=== PATIENT | male | born 1940 | race Caucasian/White ===

== ENCOUNTER → 2020-12-27 08:07 | Day surgery (SDC) | payer OTHER, SELFPAY ==
[2020-12-22 09:03] VITALS: BMI 27.6
--- NOTE | 2020-12-26 10:16 | P.CONAN_ITS ---
HPI - Anesthesia Eval Consult details Narrative: Cx'd DOS for low HR. 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 80yo M for Right Right Horizontal 2 Eye Muscle Recession/Resections PCP cleared [facility] Past Medical History Medical History (Updated 01/03/21 @ 12:06 by Christiane Green, RN) Arthritis of back Ataxia BPH (benign prostatic hyperplasia) Bradycardia CHF (congestive heart failure) COPD (chronic obstructive pulmonary disease) Elevated cholesterol Gait instability HTN (hypertension) Hyperparathyroidism Osteoarthritis Renal insufficiency Smoker Spinal stenosis Surgical History Surgical History History of esophagogastroduodenoscopy (EGD) History of hernia surgery History of neck surgery History of total left knee replacement Hx of colonoscopy Social History Social History Are you a primary career technology teacher to a significant other at home: No Do you presently have visiting nurse or other home services: No Patient Tobacco Use Status: Current everyday Tobacco user Tobacco use type: Cigarette Cigarettes Per Day: 8 Years Smoked: 55 Smoked in Last 30 Days: Yes Patient Interested in Nicotine Replacement: No Use of substances other than those prescribed or required for medical reasons: No Have you been hit, kicked, punched, or otherwise hurt by someone within the past year? If so, by whom?: No Are you DNR?: No Advance Directives: No Advance Directives Information Provided: No Advance Directives on File: No Recently lost weight without trying: No Eating poorly because of decreased appetite: No Nutrition Risks: No Nutritional Risk Meds Allergies Allergy/AdvReac Type Severity Reaction Status Date / Time No Known Allergies Allergy Verified 12/26/20 13:10 Home Medications Medication Instructions Recorded Confirmed Last Taken Type albuterol sulfate 90 mcg/actuation 2 puff INHALATION Q4-6H PRN 12/21/20 01/03/21 12/27/20 07:10 History aerosol inhaler (Proventil HFA) amlodipine 5 mg tablet 10 mg PO DAILY 12/21/20 01/03/21 12/27/20 07:10 History aspirin 81 mg tablet,delayed 81 mg PO DAILY 12/21/20 01/03/21 Unknown History release budesonide-formoterol HFA 80 2 puff INHALATION BID 12/21/20 01/03/21 12/27/20 07:10 History mcg-4.5 mcg/actuation aerosol inhaler (Symbicort) calcium carb-ergocalciferol (vit tab PO 12/21/20 Unknown History D2) 600 mg calcium-200 unit tablet carvedilol 12.5 mg tablet 6.25 mg PO BID 12/21/20 01/03/21 12/27/20 07:10 History magnesium 250 mg tablet 250 mg PO DAILY 12/21/20 01/03/21 Unknown History multivitamin 1 tab PO DAILY 12/21/20 01/03/21 Unknown History omeprazole 20 mg capsule,delayed 20 mg PO DAILY 12/21/20 01/03/21 12/27/20 07:10 History release rosuvastatin 20 mg tablet 20 mg PO DAILY 12/21/20 01/03/21 Unknown History sildenafil 50 mg tablet (Viagra) 50 mg PO DAILY PRN 12/21/20 01/03/21 Unknown History tiotropium bromide 18 mcg capsule 1 cap INHALATION DAILY 12/21/20 01/03/21 Unknown History with inhalation device (Spiriva with HandiHaler) tolterodine 4 mg capsule,extended 4 mg PO DAILY 12/21/20 01/03/21 Unknown History release 24 hr torsemide 20 mg tablet 20 mg PO DAILY 12/21/20 01/03/21 Unknown History Exam Exam Date and Time: December 26, 2020 1016 Height,Weight and Vital Signs: Height 5 ft 8 in Weight 82.554 kg Assessment and Plan Assessment Anesthesia Assessment: Chart Reviewed
[2020-12-27 08:29] VITALS: BP 155/44; PULSE 44; RESP 16; TEMP 36.7; O2SAT 97
[2020-12-27 08:42] VITALS: BP 149/48; PULSE 35
[2020-12-27] MEDS: Lactated Ringers 1,000 ML 20 ML IVCONT (08:42)
--- NOTE | 2020-12-27 08:48 | ECG_ITS ---
Test Reason : SHORT STAY Blood Pressure : / mmHG Vent. Rate : 046 BPM Atrial Rate : 046 BPM P-R Int : 256 ms QRS Dur : 104 ms QT Int : 466 ms P-R-T Axes : 090 -36 027 degrees QTc Int : 407 ms Sinus bradycardia with 1st degree A-V block Left anterior fascicular block Minimal voltage criteria for LVH, may be normal variant ( R in aVL ) Abnormal ECG No previous ECGs available Referred By: Ramy Garcia Electronically Signed By:JAINA TIMMONS MD
--- NOTE | 2020-12-27 08:55 | PC.NURSE ---
EKG BEING PERFORMED PER MD WOODS. AWARE OF HIS LOW HEART RATE. ASYMPTOMATIC.
--- NOTE | 2020-12-27 09:12 | PC.NURSE ---
MD WOODS BY BEDSIDE EVALUATING PATIENT. NO CHANGES
--- NOTE | 2020-12-27 09:24 | PC.NURSE ---
[facility] BY BEDSIDE EVALUATING PATIENT.
[2020-12-27 09:33] VITALS: BP 164/50; PULSE 43; RESP 16; O2SAT 96
--- NOTE | 2020-12-27 09:34 | PC.NURSE ---
IV REMOVED. ASSISTED WITH WHEELCHAIR OUT OF THE BUILDING.
--- NOTE | 2020-12-27 09:53 | PC.NURSE ---
PATIENTS STATES THEY HAVE A CARDIOLOGY APPT ON FRIDAY. INSTRUCTED TO CALL AND SEE IF THEYT CAN GET IN ANY EARLIER AND IF SYMPTOMATIC TO GO TO THE ER.
== END ==
PROVIDERS: PCP Internal Medicine; Visit Provider Ophthalmology
DX: H50.111 Monocular exotropia, right eye (principal); Z53.9 Procedure and treatment not carried out, unspecified reason; R00.1 Bradycardia, unspecified
CPT/HCPCS: 93005

== ENCOUNTER 2021-01-10 08:01 | Day surgery (SDC) | payer MEDICARE, OTHER, SELFPAY ==
[2021-01-03 12:06] VITALS: BMI 27.6
--- NOTE | 2021-01-09 13:55 | HO.ANESPROP2 ---
Documented by User: Theresa Mojica NP 01/09/21 14:01 HPI - Anesthesia Eval Consult details Narrative: 80yo M for Right Eye Muscle Recession/Resection, 2 horizontal muscles Cx'd 12/27/20 for low HR. 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 - per cardiology low risk for procedure, medications adjusted PCP cleared [facility] Past Medical History Medical History (Updated 01/03/21 @ 12:06 by Christiane Green, RN) Arthritis of back Ataxia BPH (benign prostatic hyperplasia) Bradycardia CHF (congestive heart failure) COPD (chronic obstructive pulmonary disease) Elevated cholesterol Gait instability HTN (hypertension) Hyperparathyroidism Osteoarthritis Renal insufficiency Smoker Spinal stenosis Surgical History Surgical History History of esophagogastroduodenoscopy (EGD) History of hernia surgery History of neck surgery History of total left knee replacement Hx of colonoscopy Social History Social History Are you a primary field care manager to a significant other at home: No Do you presently have visiting nurse or other home services: No Patient Tobacco Use Status: Current everyday Tobacco user Tobacco use type: Cigarette Cigarettes Per Day: 8 Years Smoked: 55 Smoked in Last 30 Days: Yes Patient Interested in Nicotine Replacement: No Use of substances other than those prescribed or required for medical reasons: No Have you been hit, kicked, punched, or otherwise hurt by someone within the past year? If so, by whom?: No Are you DNR?: No Advance Directives: No Advance Directives Information Provided: No Advance Directives on File: No Recently lost weight without trying: No Eating poorly because of decreased appetite: No Nutrition Risks: No Nutritional Risk Meds Allergies Allergy/AdvReac Type Severity Reaction Status Date / Time No Known Allergies Allergy Verified 12/26/20 13:10 Home Medications Medication Instructions Recorded Confirmed Last Taken Type albuterol sulfate 90 mcg/actuation 2 puff INHALATION Q4-6H PRN 12/21/20 01/03/21 01/10/21 History aerosol inhaler (Proventil HFA) amlodipine 5 mg tablet 10 mg PO DAILY 12/21/20 01/03/21 01/10/21 History aspirin 81 mg tablet,delayed 81 mg PO DAILY 12/21/20 01/03/21 Unknown History release budesonide-formoterol HFA 80 2 puff INHALATION BID 12/21/20 01/03/21 01/10/21 History mcg-4.5 mcg/actuation aerosol inhaler (Symbicort) calcium carb-ergocalciferol (vit tab PO 12/21/20 Unknown History D2) 600 mg calcium-200 unit tablet carvedilol 12.5 mg tablet 6.25 mg PO BID 12/21/20 01/03/21 01/10/21 History magnesium 250 mg tablet 250 mg PO DAILY 12/21/20 01/03/21 Unknown History multivitamin 1 tab PO DAILY 12/21/20 01/03/21 Unknown History omeprazole 20 mg capsule,delayed 20 mg PO DAILY 12/21/20 01/03/21 01/10/21 History release rosuvastatin 20 mg tablet 20 mg PO DAILY 12/21/20 01/03/21 Unknown History sildenafil 50 mg tablet (Viagra) 50 mg PO DAILY PRN 12/21/20 01/03/21 Unknown History tiotropium bromide 18 mcg capsule 1 cap INHALATION DAILY 12/21/20 01/03/21 Unknown History with inhalation device (Spiriva with HandiHaler) tolterodine 4 mg capsule,extended 4 mg PO DAILY 12/21/20 01/03/21 Unknown History release 24 hr torsemide 20 mg tablet 20 mg PO DAILY 12/21/20 01/03/21 Unknown History Exam Exam Date and Time: January 09, 2021 1355 Height,Weight and Vital Signs: Height 5 ft 8 in Weight 82.5 kg Narrative Narrative: EKG 12/27/20 Vent. Rate : 046 BPM ? ? Atrial Rate : 046 BPM ?? P-R Int : 256 ms? QRS Dur : 104 ms ? ? QT Int : 466 ms ? ? ? P-R-T Axes : 090 -36 027 degrees ?? QTc Int : 407 ms ? Sinus bradycardia with 1st degree A-V block Left anterior fascicular block Minimal voltage criteria for LVH, may be normal variant ( R in aVL ) Abnormal ECG No previous ECGs available Assessment and Plan Assessment Anesthesia Assessment: Chart Reviewed Documented by User: Lesly Ambrose MD 01/10/21 12:35 HPI - Anesthesia Eval Consult details Narrative: 80yo M for Right Eye Muscle Recession/Resection, 2 horizontal muscles Cx'd 12/27/20 for low HR. 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 Medications changed. HR still low ?P waves ?PACs, PVCs. Will check 12lead ekg [facility] Past Medical History Medical History (Updated 01/03/21 @ 12:06 by Christiane Green RN) Arthritis of back Ataxia BPH (benign prostatic hyperplasia) Bradycardia CHF (congestive heart failure) COPD (chronic obstructive pulmonary disease) Elevated cholesterol Gait instability HTN (hypertension) Hyperparathyroidism Osteoarthritis Renal insufficiency Smoker Spinal stenosis Family History Family history of problems with anesthesia: No Surgical History Surgical History History of esophagogastroduodenoscopy (EGD) History of hernia surgery History of neck surgery History of total left knee replacement Hx of colonoscopy History of Problems with Anesthesia: No Social History Social History Are you a primary field care manager to a significant other at home: No Do you presently have visiting nurse or other home services: No Patient Tobacco Use Status: Current everyday Tobacco user Tobacco use type: Cigarette Cigarettes Per Day: 8 Years Smoked: 55 Smoked in Last 30 Days: Yes Patient Interested in Nicotine Replacement: No Use of substances other than those prescribed or required for medical reasons: No Have you been hit, kicked, punched, or otherwise hurt by someone within the past year? If so, by whom?: No Are you DNR?: No Advance Directives: No Advance Directives Information Provided: No Advance Directives on File: No Recently lost weight without trying: No Eating poorly because of decreased appetite: No Nutrition Risks: No Nutritional Risk Meds Allergies Allergy/AdvReac Type Severity Reaction Status Date / Time No Known Allergies Allergy Verified 12/26/20 13:10 Home Medications Medication Instructions Recorded Confirmed Last Taken Type albuterol sulfate 90 mcg/actuation 2 puff INHALATION Q4-6H PRN 12/21/20 01/03/21 01/10/21 History aerosol inhaler (Proventil HFA) amlodipine 5 mg tablet 10 mg PO DAILY 12/21/20 01/03/21 01/10/21 History aspirin 81 mg tablet,delayed 81 mg PO DAILY 12/21/20 01/03/21 Unknown History release budesonide-formoterol HFA 80 2 puff INHALATION BID 12/21/20 01/03/21 01/10/21 History mcg-4.5 mcg/actuation aerosol inhaler (Symbicort) calcium carb-ergocalciferol (vit tab PO 12/21/20 Unknown History D2) 600 mg calcium-200 unit tablet carvedilol 12.5 mg tablet 6.25 mg PO BID 12/21/20 01/03/21 01/10/21 History magnesium 250 mg tablet 250 mg PO DAILY 12/21/20 01/03/21 Unknown History multivitamin 1 tab PO DAILY 12/21/20 01/03/21 Unknown History omeprazole 20 mg capsule,delayed 20 mg PO DAILY 12/21/20 01/03/21 01/10/21 History release rosuvastatin 20 mg tablet 20 mg PO DAILY 12/21/20 01/03/21 Unknown History sildenafil 50 mg tablet (Viagra) 50 mg PO DAILY PRN 12/21/20 01/03/21 Unknown History tiotropium bromide 18 mcg capsule 1 cap INHALATION DAILY 12/21/20 01/03/21 Unknown History with inhalation device (Spiriva with HandiHaler) tolterodine 4 mg capsule,extended 4 mg PO DAILY 12/21/20 01/03/21 Unknown History release 24 hr torsemide 20 mg tablet 20 mg PO DAILY 12/21/20 01/03/21 Unknown History Exam Height,Weight and Vital Signs: Height 5 ft 8 in Weight 82.5 kg Vital Signs Temp Pulse Resp BP Pulse Ox 97.6 F 55 18 191/63 H 96 01/10/21 09:32 01/10/21 09:32 01/10/21 09:32 01/10/21 09:32 01/10/21 09:32 Pertinent Lab Results Pertinent Lab Results: Lab Results 01/10/21 Range/Units 10:56 POC Hgb (Calc) 9.9 L (14.0-18.0) g/dL POC Hct 29 L (42-52) %PCV POC Std Base Excess 2 (-3-3) mmol/L POC O2 Sat (Calc) TNP POC ABG Total CO2 28 (24-29) mmol/L POC Capillary pH 7.40 (7.35-7.45) POC Capillary pCO2 43 (35-48) mmhg POC Cap HCO3 (Calc) 27 H (22-26) mmol/L POC Sodium 141 (135-145) mmol/L POC Potassium 4.4 (3.3-5.1) mmol/L POC Glucose 101 (60-115) mg/dL Airway Mallampati Class: II TM Dist: >3cm Neck ROM: Full Heart: RRR Lungs: CTAB Assessment and Plan Assessment Anesthesia Assessment: Anesthesia Plan Discussed Final Anesthetic Review Family History of Problems with Anesthesia: No History of Problems with Anesthesia: No NPO: Yes ASA Class: III Final Preanesthetic Review: No Changes in Pt Med Stat, Meds/Allgs Chart Reviewed, Consent Obtained/Reviewed and Anes Risks/Benef Reviewed Patient Risk: Intermediate Procedure Risk: Low Assessment/Block/Sedation in SS: Assess/Block/Sedation-SS Anesthetic Plan Anesthetic Plan: GA Disposition: Standard PACU
[2021-01-10] VITALS (8 sets, daily range): BP systolic 155–191; BP diastolic 53–99; PULSE 43–55; RESP 16–18; TEMP 36.1–36.4; O2SAT 96–100
--- NOTE | 2021-01-10 | ECG_ITS ---
Test Reason : arrhythmia Blood Pressure : / mmHG Vent. Rate : 049 BPM Atrial Rate : 049 BPM P-R Int : 232 ms QRS Dur : 102 ms QT Int : 460 ms P-R-T Axes : 058 -41 053 degrees QTc Int : 415 ms Sinus bradycardia with marked sinus arrhythmia with 1st degree A-V block Left anterior fascicular block Minimal voltage criteria for LVH, may be normal variant ( R in aVL ) Nonspecific ST abnormality Intra-ventricular conduction delay Abnormal ECG When compared with ECG of 27-DEC-2020 08:55, ST more elevated in Septal leads Referred By: Lesly Ambrose Electronically Signed By:JANIA TIMMONS MD
--- NOTE | 2021-01-10 10:23 | ECG_ITS ---
Test Reason : preop Blood Pressure : / mmHG Vent. Rate : 046 BPM Atrial Rate : 046 BPM P-R Int : 248 ms QRS Dur : 090 ms QT Int : 490 ms P-R-T Axes : 000 -42 008 degrees QTc Int : 428 ms Sinus bradycardia with 1st degree A-V block with Premature supraventricular complexes Left anterior fascicular block Minimal voltage criteria for LVH, may be normal variant ( R in aVL ) Abnormal ECG When compared with ECG of 10-JAN-2021 10:37, Premature supraventricular complexes are now Present Referred By: Lesly Ambrose Electronically Signed By:JANIA TIMMONS MD
--- NOTE | 2021-01-10 10:24 | PC.NURSE ---
CALLED FOR EKG PER ANAESTHESIA. PATIENTS HEART RATE AROUND 44. ASYMPTOMATIC
[2021-01-10 11:00] LABS: Base Excess Bedside Calculated 2 mmol/L (-3-3); Glucose, i-STAT 101 mg/dL (60-115); HCO3 Bedside Calculated 27 mmol/L (22-26); Hematocrit Bedside 29 %PCV (42-52); Hemoglobin Bedside 9.9 g/dL (14.0-18.0); Potassium Bedside 4.4 mmol/L (3.3-5.1); Sodium Bedside 141 mmol/L (135-145); TCO2 Bedside 28 mmol/L (24-29); pCO2 Bedside 43 mmhg (35-48)
[2021-01-10] MEDS: Acetaminophen 325 MG TABLET 650 MG PO (12:35)
--- NOTE | 2021-01-10 14:03 | P.PEDOPHT_ITS ---
Pediatric Ophthalmology Operative Note Date of Service: 01/10/21 Narrative: Procedures 1. Right lateral rectus recession of 10 mm 2. Right medial rectus resection of [address] Echavarria anesthesia general complications none. The patient was brought to the operating room placed under general anesthesia. The patient's right eye was prepped and draped in the usual sterile ophthalmic fashion. A lid speculum was placed in the eye and a peritomy was created around the lateral rectus muscle. The muscle was hooked and secured with a double-armed Vicryl suture. It was disinserted from the globe and reattached to a position 10 mm behind the original insertion. Conjunctiva was closed with interrupted Vicryl sutures. A limbal peritomy was then created around the medial rectus muscle. The medial rectus muscle was hooked and a 9 mm resection was marked off with cautery. The muscle was then secured with a Treynor muscle clamp and resection point secured with a double-armed Vicryl suture. The muscle was disinserted from the globe and the distal muscle resected. The resection point was then drawn forward to the original insertion. Conjunctiva was closed with interrupted Vicryl sutures. The patient was then awoken from general anesthesia and discharged to postoperative recovery in good condition.
[2021-01-12 07:45] LABS: pO2 Bedside < 50 mmhg (83-108)
== END 2021-01-10 14:35 | disposition home or self-care (01) ==
LOC: HO.SSS 08:02
PROVIDERS: PCP Internal Medicine; Visit Provider Ophthalmology
PROC: (CPT 67312; principal; 2021-01-10 09:40)
DX: H50.111 Monocular exotropia, right eye (principal); J44.9 Chronic obstructive pulmonary disease, unspecified; I11.0 Hypertensive heart disease with heart failure; I50.9 Heart failure, unspecified; N28.9 Disorder of kidney and ureter, unspecified; E78.00 Pure hypercholesterolemia, unspecified; R26.89 Other abnormalities of gait and mobility; Z79.51 Long term (current) use of inhaled steroids; Z79.82 Long term (current) use of aspirin; Z79.899 Other long term (current) drug therapy; F17.210 Nicotine dependence, cigarettes, uncomplicated
CPT/HCPCS: 67312; 93005; C1713; J2405; J3010